=== PATIENT | female | born 2000 | race Caucasian/White ===

== ENCOUNTER 2022-07-20 19:19 | Emergency (ER) | payer MEDICAID ==
[2022-07-20 19:34] VITALS: BP 105/73
--- NOTE | 2022-07-20 19:57 | ED Physician Documentation ---
PD HPI ABD PAIN - Stated complaint Stated Complaint: FEMALE - Chief complaint Chief Complaint: Abd Pain - History obtained from History obtained from: Patient - Additional information Additional information: Previously healthy 22-year-old woman presents with about a month worth of suprapubic pain that is worse when urinating associated with urinary frequency. It is not associate with back pain. She is sexually active without control and her last menses was early in June. She notes she is a late now. I asked her if she had taken a test, and she responded that she did not have 1. She has been losing weight over the last few years. Uses THC oil heavily and daily. PD PAST MEDICAL HISTORY - Present Medications Home Medications: Ambulatory Orders Medication Instructions Recorded Confirmed No Known Home Medications 07/20/22 07/20/22 - Allergies Allergies/Adverse Reactions: Allergies Allergy/AdvReac Type Severity Reaction Status Date / Time No Known Drug Allergies Allergy Verified 07/20/22 19:32 PD ED PE NORMAL - Vitals Vital signs reviewed: Yes - General General: Alert and oriented X 3, Other (She is thin with a BMI of 17, very anxious.) - Abdomen Abdomen: Normal bowel sounds, Soft, Non tender - Derm Derm: No rash - Neuro Neuro: Alert and oriented X 3, Normal speech Results - Vitals Vitals: Vital Signs - 24 hr 07/20/22 19:28 Temperature 36.3 C L Heart Rate 67 Respiratory 17 Rate Blood Pressure 105/73 O2 Saturation 99 Oxygen O2 Source Room air - Labs Labs: Laboratory Tests 07/20/22 07/20/22 19:43 19:43 Urine Color YELLOW Urine Clarity CLEAR Urine pH 5.5 Ur Specific [place] >=1.030 H Urine Protein NEGATIVE Urine Glucose (UA) NEGATIVE Urine Ketones NEGATIVE Urine Occult Blood NEGATIVE Urine Nitrite NEGATIVE Urine Bilirubin NEGATIVE Urine Urobilinogen 0.2 (NORMAL) Ur Leukocyte Esterase NEGATIVE Ur Microscopic Review NOT INDICATED Urine Culture Comments NOT INDICATED Urine HCG, Qual NEGATIVE Urine Opiates Screen NEGATIVE Ur Oxycodone Screen NEGATIVE Urine Methadone Screen NEGATIVE Ur Propoxyphene Screen NEGATIVE Ur Barbiturates Screen NEGATIVE Ur Tricyclics Screen NEGATIVE Ur Phencyclidine Scrn NEGATIVE Ur Amphetamine Screen NEGATIVE U Methamphetamines Scrn NEGATIVE U Benzodiazepines Scrn NEGATIVE Urine Cocaine Screen NEGATIVE U Cannabinoids Screen POSITIVE H PD Medical Decision Making - ED course ED course: This is a 22-year-old who presents late with her menses with suprapubic discomfort. She corrects me that it is not pain. She has a very odd affect, mumbling speech. Initially refused blood work because she is scared of needles. Urinalysis and test was normal/negative. Offered further work-up including blood work and an ultrasound. She had some nonsensical answers such as "I want you to check for all 39 diseases." I discussed with her that I was n ot sure what 39 diseases she was referring to. She states "you know, all of the diseases." I assured her that there were many more than 39 diseases in existence. We generally formulate further work-up based on the history and physical examination which in this case would include fibroids, pelvic cyst, STDs. I offered further work-up including blood work, pelvic ultrasound, and pelvic examination and she wanted to call a friend before she considered any of those. Subsequent to that phone call she declined further work-up in the department and will follow-up with gynecology for outpatient evaluation and treatment. Departure - Departure Disposition: Home, Self Care Clinical Impression: Pelvic pain in female Condition: Good Record reviewed to determine appropriate education?: Yes Instructions: ED Pelvic Pain [facility] Follow-Up: [facility] [Provider Group] Comments: The cause of your pelvic discomfort is not clear tonight but based on the time course, your history and exam there is no apparent emergency medical condition. Reasonable to follow-up with the gynecology office next week. The numbers on this form. Call Saturday for an appointment. Return for new or worsening symptoms.
[2022-07-20 20:16] LABS: BILIRUBIN,URINE NEGATIVE (NEGATIVE); GLUCOSE, URINE (UA) NEGATIVE (NEGATIVE); KETONES,URINE (UA) NEGATIVE (NEGATIVE); LEUKOCYTE ESTERASE, URINE NEGATIVE (NEGATIVE); NITRITE,URINE NEGATIVE (NEGATIVE); OCCULT BLOOD,URINE NEGATIVE (NEGATIVE); PH,URINE 5.5 PH (5.0-7.5); PROTEIN,URINE NEGATIVE (NEGATIVE); UROBILINOGEN,URINE 0.2 (NORMAL) E.U./dL (NORMAL)
[2022-07-20 20:19] LABS: CLARITY,URINE CLEAR (CLEAR); HCG UR QUAL NEGATIVE
[2022-07-20 20:51] LABS: MUDS CUTOFF CONCENTRATIONS CUTOFF CONC BELOW:
[2022-07-20 21:05] LABS: AMPHETAMINE SCREEN,URINE NEGATIVE (NEGATIVE); BARBITURATE SCREEN,UR NEGATIVE (NEGATIVE); BENZODIAZEPINES SCREEN, URINE NEGATIVE (NEGATIVE); COCAINE SCREEN URINE NEGATIVE (NEGATIVE); METHADONE SCREEN, URINE NEGATIVE (NEGATIVE); METHAMPHETAMINES SCREEN, URINE NEGATIVE (NEGATIVE); OPIATE SCREEN, URINE NEGATIVE (NEGATIVE); OXYCODONE SCREEN, URINE NEGATIVE (NEGATIVE); PROPOXYPHENE SCREEN, URINE NEGATIVE (NEGATIVE); THC CANNABINOID SCREEN, URINE POSITIVE (NEGATIVE); TRICYCLIC ANTIDEPRESSANT,URINE NEGATIVE (NEGATIVE)
== END 2022-07-20 21:14 | disposition home or self-care (01) ==
LOC: ED 19:19
DX: R10.2 Pelvic and perineal pain (principal)
CPT/HCPCS: 80048; 80306; 81001; 81003; 81025; 85025; 87086; 99283

== ENCOUNTER 2022-07-22 20:00 | Outpatient (CLI) | payer MEDICAID | END 2022-07-22 20:01 | disposition critical access hospital (66) | LOC: EMS 20:00 | DX: T76.21XA Adult sexual abuse, suspected, initial encounter (principal); R10.2 Pelvic and perineal pain | CPT/HCPCS: A0425; A0429; A0999 ==

== ENCOUNTER 2022-07-22 20:16 | Emergency (ER) | payer MEDICAID ==
[2022-07-22 21:37] LABS: BILIRUBIN,URINE NEGATIVE (NEGATIVE); GLUCOSE, URINE (UA) NEGATIVE (NEGATIVE); KETONES,URINE (UA) 15 mg/dL (NEGATIVE); LEUKOCYTE ESTERASE, URINE NEGATIVE (NEGATIVE); NITRITE,URINE NEGATIVE (NEGATIVE); OCCULT BLOOD,URINE NEGATIVE (NEGATIVE); PROTEIN,URINE TRACE mg/dL (NEGATIVE); UROBILINOGEN,URINE 0.2 (NORMAL) E.U./dL (NORMAL)
[2022-07-22 21:40] LABS: CLARITY,URINE CLEAR (CLEAR); HCG UR QUAL NEGATIVE
[2022-07-22] MEDS ORDERED: LIDOCAINE 1% 2 ML VIAL MC ONE (21:53)
[2022-07-22] MEDS ORDERED: cefTRIAXone 500 MG VIAL IM STA (21:53)
[2022-07-22] MEDS ORDERED: DOXYCYCLINE 100 MG TABLET PO STA (21:53)
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
[2022-07-22 22:32] VITALS: BP 122/70
[2022-07-22 23:50] LABS: BACTERIAL VAGINOSIS DNA NEGATIVE (NEGATIVE); CANDIDA KRUSEI DNA NEGATIVE (NEGATIVE)
[2022-07-22 23:51] LABS: CANDIDA GLABRATA DNA NEGATIVE (NEGATIVE); CANDIDA GROUP DNA POSITIVE (NEGATIVE); TRICHOMONAS VAGINALIS DNA NEGATIVE (NEGATIVE)
[2022-07-23 02:34] LABS: CHLAMYDIA TRACHOMATIS DNA NEGATIVE (NEGATIVE); NEISSERIA GONORRHOEAE DNA NEGATIVE (NEGATIVE)
== END 2022-07-22 22:37 | disposition home or self-care (01) ==
LOC: ED 20:16
DX: Z11.3 Encounter for screening for infections with a predominantly sexual mode of transmission (principal)
CPT/HCPCS: 81003; 81025; 81514; 87491; 87591; 96372; 99283; A9270; 81001; 87086; 87661

== ENCOUNTER 2022-09-22 01:55 | Outpatient (CLI) | payer MEDICAID | END 2022-09-22 23:59 | disposition critical access hospital (66) | LOC: EMS 01:55 | DX: R46.89 Other symptoms and signs involving appearance and behavior (principal); R45.89 Other symptoms and signs involving emotional state; R41.82 Altered mental status, unspecified; R04.0 Epistaxis; R45.1 Restlessness and agitation | CPT/HCPCS: A0425; A0429; A0999 ==

== ENCOUNTER 2022-09-22 02:06 | Emergency (ER) | payer MEDICAID ==
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
[2022-09-22 02:30] LABS: MUDS CUTOFF CONCENTRATIONS CUTOFF CONC BELOW:
[2022-09-22 02:32] LABS: HCG UR QUAL NEGATIVE
[2022-09-22 02:33] LABS: BASOPHILS # (AUTO) 0.1 10^3/uL (0.0-0.1); BASOPHILS % (AUTO) 0.5 %; EOSINOPHILS # (AUTO) 0.1 10^3/uL (0.0-0.7); EOSINOPHILS % (AUTO) 0.5 %; HCT - HEMATOCRIT 40.8 % (37.0-47.0); HGB - HEMOGLOBIN 13.2 g/dL (12.0-16.0); LYMPHOCYTES # (AUTO) 1.7 10^3/uL (1.5-3.5); LYMPHOCYTES % (AUTO) 13.1 %; MEAN CORPUSCULAR HEMOGLOBIN 28.4 pg (27.0-31.0); MEAN CORPUSCULAR HGB CONC 32.4 g/dL (32.0-36.0); MEAN CORPUSCULAR VOLUME 87.9 fL (81.0-99.0); MEAN PLATELET VOLUME 9.8 fL (7.9-10.8); MONOCYTES # (AUTO) 0.7 10^3/uL (0.0-1.0); MONOCYTES % (AUTO) 5.5 %; NEUTROPHILS # (AUTO) 10.6 10^3/uL (1.5-6.6); PLT - PLATELET COUNT 250 10^3/uL (130-450); RED BLOOD COUNT 4.64 10^6/uL (4.20-5.40); RED CELL DISTRIBUTION WIDTH 12.9 % (12.0-15.0); WHITE BLOOD COUNT 13.2 x10^3/uL (4.8-10.8)
[2022-09-22 02:38] LABS: THC CANNABINOID SCREEN, URINE POSITIVE (NEGATIVE)
[2022-09-22 02:39] LABS: AMPHETAMINE SCREEN,URINE NEGATIVE (NEGATIVE); BARBITURATE SCREEN,UR NEGATIVE (NEGATIVE); BENZODIAZEPINES SCREEN, URINE NEGATIVE (NEGATIVE); COCAINE SCREEN URINE NEGATIVE (NEGATIVE); METHADONE SCREEN, URINE NEGATIVE (NEGATIVE); METHAMPHETAMINES SCREEN, URINE NEGATIVE (NEGATIVE); OPIATE SCREEN, URINE NEGATIVE (NEGATIVE); OXYCODONE SCREEN, URINE NEGATIVE (NEGATIVE); PROPOXYPHENE SCREEN, URINE NEGATIVE (NEGATIVE); TRICYCLIC ANTIDEPRESSANT,URINE NEGATIVE (NEGATIVE)
[2022-09-22 02:49] LABS: ALBUMIN 5.1 g/dL (3.2-5.5); ALBUMIN/GLOBULIN RATIO 1.7 (1.0-2.2); ALKALINE PHOSPHATASE 52 IU/L (42-121); ALT ALANINE AMINOTRANSFERASE 10 IU/L (10-60); AST ASPARTATE AMINOTRANSFERASE 19 IU/L (10-42); BILIRUBIN,TOTAL 0.9 mg/dL (0.2-1.0); BUN - BLOOD UREA NITROGEN 9 mg/dL (6-20); CALCIUM 10.1 mg/dL (8.5-10.3); CARBON DIOXIDE - CO2 25 mmol/L (21-32); CHLORIDE 104 mmol/L (101-111); CREATININE 0.8 mg/dL (0.6-1.3); ETOH - ETHANOL < 10.0 mg/dL; GFR - MDRD 90 (>89); GLUCOSE 116 mg/dL (74-104); POTASSIUM 3.2 mmol/L (3.5-4.5); SODIUM 138 mmol/L (135-145); TOTAL PROTEIN 8.1 g/dL (6.4-8.9)
[2022-09-22 02:56] LABS: ACETAMINOPHEN < 0.1 ug/mL; SALICYLATE < 1.5 mg/dL
[2022-09-22] MEDS ORDERED: POTASSIUM CHLORIDE 20 MEQ TABLET PO STA (07:31)
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
--- NOTE | 2022-09-22 07:42 | ED Physician Documentation ---
ED Addendum - Addendum Addendum: Patient signed out to me by overnight physician awaiting telepsychiatry evaluation. Patient has been seen by telepsychiatrist and is recommended for inpatient treatment. Psychiatrist is concerned that patient is gravely disabled and very disorganized with her thought process. Medication recommendations are for 2.5 mg of olanzapine in the morning and 5 mg at bedtime Which I have ordered. Potassium was slightly low at 3.2 so have ordered p.o. replacement. Social work consult has also been requested for assistance with placement. I have updated the patient regarding treatment recommendations and she is agreeable to psychiatric placement as well as starting medication today. Telepsychiatrist also obtained phone number for her sister Felicia [phone]. 09/22/22 16:11 Patient has been accepted to [facility]. COBRA's have been signed. She has been cooperative thus far. Departure - Departure Disposition: 65 Psych Hosp/Unit DC/Xfer Clinical Impression: Psychiatric symptoms Condition: Stable Forms: PCP List
[2022-09-22 08:56] LABS: BILIRUBIN,URINE NEGATIVE (NEGATIVE); GLUCOSE, URINE (UA) NEGATIVE (NEGATIVE); KETONES,URINE (UA) TRACE mg/dL (NEGATIVE); LEUKOCYTE ESTERASE, URINE TRACE (NEGATIVE); NITRITE,URINE NEGATIVE (NEGATIVE); OCCULT BLOOD,URINE NEGATIVE (NEGATIVE); PROTEIN,URINE TRACE mg/dL (NEGATIVE); UROBILINOGEN,URINE 0.2 (NORMAL) E.U./dL (NORMAL)
[2022-09-22] MEDS ORDERED: OLANZapine ODT 5 MG TABLET TL SCH ×2 (09:00→21:00)
[2022-09-22 09:10] LABS: CLARITY,URINE CLEAR (CLEAR)
[2022-09-22 09:11] LABS: BACTERIA,URINE Few /HPF (None Seen); RBC,URINE None Seen /HPF (0-5); SQUAMOUS EPITHELIAL CELL,UR MANY Squamous (<= Few)
--- NOTE | 2022-09-22 09:36 | XRAY Report ---
PROCEDURE: Abdomen 1 View X-Ray INDICATIONS: POSSIBLE FOREIGN BODY TECHNIQUE: One view of the abdomen acquired. COMPARISON: None. FINDINGS: Surgical changes and devices: None. Bowel: Bowel gas pattern is normal. Soft tissues: No suspicious abdominal calcifications. No radiopaque soft tissue foreign bodies. Vis ualized solid organ contours appear normal in size. Bones: No suspicious bony lesions. IMPRESSION: No acute abdominal pathology. No radiopaque soft tissue foreign body identified. Findings are concordant with preliminary interpretation provided by [facility]. Reviewed by: Darrell Mckee MD on 09/22/2022 8:35 AM [facility] Approved by: Darrell Mckee MD on 09/22/2022 8:35 AM [facility] Station ID: [id number]
[2022-09-22 20:27] VITALS: BP 120/85
== END 2022-09-22 20:29 ==
LOC: EDUNIT# → ED 02:06
DX: F29 Unspecified psychosis not due to a substance or known physiological condition (principal); F12.150 Cannabis abuse with psychotic disorder with delusions; Z20.822 Contact with and (suspected) exposure to COVID-19
CPT/HCPCS: 36415; 74018; 80053; 80306; 80307; 80320; 80329; 81001; 81025; 85025; 87635; 90834; 99285; A9270; Q3014; 81003; 87086